=== PATIENT | female | born 1950 | race Caucasian/White ===

== ENCOUNTER 2017-08-26 13:55 | Emergency (ER) | payer MEDICARE ==
[~2017-08-26] VITALS: Ht 170.2 cm; Wt 80.5 kg
[2017-08-26 13:58] VITALS: BP 141/65; PULSE 105; RESP 14; TEMP 98.5; O2SAT 96
[2017-08-26] MEDS ORDERED: ROSU10 PO (15:03)
[2017-08-26] MEDS ORDERED: LISI10TA3 PO (15:03)
[2017-08-26] MEDS ORDERED: SODIUM CHLOR 0.9% 1000 ML INJ 1,000 ML IV SCH (15:06)
[2017-08-26] MEDS ORDERED: SODIUM CHLORIDE 0.9% FLUSH 10 ML FLUSH IV FLUSH PRN (15:15)
[2017-08-26] MEDS ORDERED: DIATRIZOATE MEGLUM/DIATRIZOATE SOD 9 ML CUP ONE (15:15)
--- NOTE | 2017-08-26 15:18 | PD ---
HPI Chief Complaint: GI Complaint Time Seen by Provider: 14:58 Travel History International Travel<30 days: No Contact w/Intl Traveler<30days: No Traveled to known affect area: No History of Present Illness HPI Patient is a 67 year old female who presents to the ER with complaints of constipation. Patient reports that she has history of diverticulitis, history of cholecystectomy as well as history of a hysterectomy. She reports that for the past 5 days, she has been unable to have a bowel movement. Patient reports that she is here visiting from [place], reports that her diet has been "off." Reports that she has been eating a lot of cheeses as well as nuts which is out of her normal diet. Patient reports that she normally has 2 bowel movements per day. Patient reports that for the past 5 days, she has had the urgency to have a bowel movement but was unable to. Patient reports that she has tried Dulcolax twice without any resolve. Reports increased crampy lower abdominal pain with nausea and no vomiting. Denies fever/chills. No other c/o. PFSH Past Medical History Hx Anticoagulant Therapy: No Cardiovascular Problems: No High Cholesterol: Yes Chemotherapy: No Cerebrovascular Accident: No Diabetes: No Hypertension: Yes Respiratory: No Tetanus Vaccination: < 5 Years ?: Not Past Surgical History Cholecystectomy: Yes Hysterectomy: Yes Social History Alcohol Use: Yes Tobacco Use: No Substance Use: No Allergies-Medications (Allergen,Severity, Reaction): Coded Allergies: codeine (Verified Allergy, Severe, 08/26/17) Reported Meds & Prescriptions Reported Meds & Active Scripts Active Reported Crestor (Rosuvastatin Calcium) 10 Mg Tab 10 Mg PO DAILY Lisinopril 10 Mg Tab 10 Mg PO DAILY Review of Systems General / Constitutional: No: Fever, Chills Eyes: No: Visual changes HENT: No: Headaches Cardiovascular: No: Chest Pain or Discomfort Respiratory: No: Shortness of Breath Gastrointestinal: Positive: Nausea, Abdominal Pain, Constipation, No: Vomiting , Diarrhea Genitourinary: No: Dysuria Musculoskeletal: No: Pain Skin: No Rash Neurologic: No: Weakness Psychiatric: No: Depression Endocrine: No: Polydipsia Hematologic/Lymphatic: No: Easy Bruising Physical Exam Narrative GENERAL: Mild distress SKIN: Focused skin assessment warm/dry. HEAD: Atraumatic. Normocephalic. EYES: Pupils equal and round. No scleral icterus. No injection or drainage. ENT: No nasal bleeding or discharge. Mucous membranes pink and moist. NECK: Trachea midline. No JVD. CARDIOVASCULAR: Regular rate and rhythm. No murmur appreciated. RESPIRATORY: No accessory muscle use. Clear to auscultation. Breath sounds equal bilaterally. GASTROINTESTINAL: Abdomen soft, mild lower abdominal tenderness. NO rebound or guarding on exam. Hepatic and splenic margins not palpable. Rectal exam performed with RN at bedside, patient with no stool in rectal vault MUSCULOSKELETAL: No obvious deformities. No clubbing. No cyanosis. No edema. NEUROLOGICAL: Awake and alert. No obvious cranial nerve deficits. Motor grossly within normal limits. Normal speech. PSYCHIATRIC: Appropriate mood and affect; insight and judgment normal. Data Data Last Documented VS Vital Signs Date Time Temp Pulse Resp B/P (MAP) Pulse Ox O2 Delivery O2 Flow Rate FiO2 08/26/17 15:39 99 08/26/17 13:58 98.5 105 14 Orders Orders Complete Blood Count With Diff (08/26/17 15:06) Comprehensive Metabolic Panel (08/26/17 15:06) Lipase (08/26/17 15:06) Prothrombin Time / Inr (Pt) (08/26/17 15:06) Act Partial Throm Time (Ptt) (08/26/17 15:06) Urinalysis - C+S If Indicated (08/26/17 15:06) Ct Abd/Pel W Iv Contrast(Rout) (08/26/17 15:06) Iv Access Insert/Monitor (08/26/17 15:06) Ecg Monitoring (08/26/17 15:06) Oximetry (08/26/17 15:06) Sodium Chlor 0.9% 1000 Ml Inj (Ns 1000 M (08/26/17 15:06) Sodium Chloride 0.9% Flush (Ns Flush) (08/26/17 15:15) Oral Contrast - Adult (08/26/17 15:13) Diatrizoate Liq ( Gastroview Liq) (08/26/17 15:15) Ondansetron Inj (Zofran Inj) (08/26/17 15:30) Urine Culture (08/26/17 15:20) Potassium Chloride (Kcl) (08/26/17 16:30) Ceftriaxone Inj (Rocephin Inj) (08/26/17 16:45) Labs Laboratory Tests Test 08/26/17 15:20 White Blood Count 14.5 TH/MM3 Red Blood Count 4.97 MIL/MM3 Hemoglobin 14.4 GM/DL Hematocrit 43.0 % Mean Corpuscular Volume 86.5 FL Mean Corpuscular Hemoglobin 29.0 PG Mean Corpuscular Hemoglobin Concent 33.5 % Red Cell Distribution Width 14.7 % Platelet Count 286 TH/MM3 Mean Platelet Volume 7.3 FL Neutrophils (%) (Auto) 71.4 % Lymphocytes (%) (Auto) 21.6 % Monocytes (%) (Auto) 5.9 % Eosinophils (%) (Auto) 0.7 % Basophils (%) (Auto) 0.4 % Neutrophils # (Auto) 10.4 TH/MM3 Lymphocytes # (Auto) 3.1 TH/MM3 Monocytes # (Auto) 0.9 TH/MM3 Eosinophils # (Auto) 0.1 TH/MM3 Basophils # (Auto) 0.1 TH/MM3 CBC Comment DIFF FINAL Differential Comment Prothrombin Time 10.2 SEC Prothromb Time International Ratio 0.9 RATIO Activated Partial Thromboplast Time 27.1 SEC Urine Color YELLOW Urine Turbidity HAZY Urine pH 7.0 Urine Specific [place] 1.019 Urine Protein TRACE mg/dL Urine Glucose (UA) NEG mg/dL Urine Ketones NEG mg/dL Urine Occult Blood NEG Urine Nitrite NEG Urine Bilirubin NEG Urine Urobilinogen LESS THAN 2.0 MG/DL Urine Leukocyte Esterase MOD Urine RBC 8 /hpf Urine WBC 19 /hpf Urine Squamous Epithelial Cells 4 /hpf Urine Mucus FEW /lpf Microscopic Urinalysis Comment CULTURE INDICATED Blood Urea Nitrogen 19 MG/DL Creatinine 0.88 MG/DL Random Glucose 113 MG/DL Total Protein 8.6 GM/DL Albumin 4.2 GM/DL Calcium Level 9.4 MG/DL Alkaline Phosphatase 85 U/L Aspartate Amino Transf (AST/SGOT) 30 U/L Alanine Aminotransferase (ALT/SGPT) 51 U/L Total Bilirubin 1.8 MG/DL Sodium Level 133 MEQ/L Potassium Level 3.3 MEQ/L Chloride Level 95 MEQ/L Carbon Dioxide Level 26.1 MEQ/L Anion Gap 12 MEQ/L Estimat Glomerular Filtration Rate 64 ML/MIN Lipase 122 U/L MDM Medical Decision Making Medical Screen Exam Complete: Yes Emergency Medical Condition: Yes Medical Record Reviewed: Yes Interpretation(s) Vital Signs Date Time Temp Pulse Resp B/P (MAP) Pulse Ox O2 Delivery O2 Flow Rate FiO2 08/26/17 13:58 98.5 105 14 141/65 (90) 96 Differential Diagnosis Small bowel obstruction, constipation, electrolyte abnormality, colitis, diverticulitis Narrative Course During the course of the patients emergency department visit, the patients history, examination, and differential diagnosis were reviewed with the patient. The patient was placed on a work car operator with oximetry and frequent blood pressure monitoring. The patient had 20 Gauge IV access obtained and blood work sent for analysis. The patient was initially provided IVF and antiemetics. The patients laboratory studies were reviewed and remarkable for Laboratory Tests Test 08/26/17 15:20 White Blood Count 14.5 TH/MM3 (4.0-11.0) Red Blood Count 4.97 MIL/MM3 (4.00-5.30) Hemoglobin 14.4 GM/DL (11.6-15.3) Hematocrit 43.0 % (35.0-46.0) Mean Corpuscular Volume 86.5 FL (80.0-100.0) Mean Corpuscular Hemoglobin 29.0 PG (27.0-34.0) Mean Corpuscular Hemoglobin Concent 33.5 % (32.0-36.0) Red Cell Distribution Width 14.7 % (11.6-17.2) Platelet Count 286 TH/MM3 (150-450) Mean Platelet Volume 7.3 FL (7.0-11.0) Neutrophils (%) (Auto) 71.4 % (16.0-70.0) Lymphocytes (%) (Auto) 21.6 % (9.0-44.0) Monocytes (%) (Auto) 5.9 % (0.0-8.0) Eosinophils (%) (Auto) 0.7 % (0.0-4.0) Basophils (%) (Auto) 0.4 % (0.0-2.0) Neutrophils # (Auto) 10.4 TH/MM3 (1.8-7.7) Lymphocytes # (Auto) 3.1 TH/MM3 (1.0-4.8) Monocytes # (Auto) 0.9 TH/MM3 (0-0.9) Eosinophils # (Auto) 0.1 TH/MM3 (0-0.4) Basophils # (Auto) 0.1 TH/MM3 (0-0.2) CBC Comment DIFF FINAL Differential Comment Prothrombin Time 10.2 SEC (9.8-11.6) Prothromb Time International Ratio 0.9 RATIO Activated Partial Thromboplast Time 27.1 SEC (24.3-30.1) Urine Color YELLOW (YELLW/STRAW) Urine Turbidity HAZY (CLEAR) Urine pH 7.0 (5.0-8.5) Urine Specific [place] 1.019 (1.002-1.035) Urine Protein TRACE mg/dL (NEG-TRACE) Urine Glucose (UA) NEG mg/dL (NEG) Urine Ketones NEG mg/dL (NEG) Urine Occult Blood NEG (NEG) Urine Nitrite NEG (NEG) Urine Bilirubin NEG (NEG) Urine Urobilinogen LESS THAN 2.0 MG/DL (LESS Urine Leukocyte Esterase MOD (NEG) Urine RBC 8 /hpf (0-3) Urine WBC 19 /hpf (0-5) Urine Squamous Epithelial Cells 4 /hpf (0-5) Urine Mucus FEW /lpf (OCC) Microscopic Urinalysis Comment CULTURE INDICATED Blood Urea Nitrogen 19 MG/DL (7-18) Creatinine 0.88 MG/DL (0.50-1.00) Random Glucose 113 MG/DL (74-106) Total Protein 8.6 GM/DL (6.4-8.2) Albumin 4.2 GM/DL (3.4-5.0) Calcium Level 9.4 MG/DL (8.5-10.1) Alkaline Phosphatase 85 U/L (45-117) Aspartate Amino Transf (AST/SGOT) 30 U/L (15-37) Alanine Aminotransferase (ALT/SGPT) 51 U/L (10-53) Total Bilirubin 1.8 MG/DL (0.2-1.0) Sodium Level 133 MEQ/L (136-145) Potassium Level 3.3 MEQ/L (3.5-5.1) Chloride Level 95 MEQ/L (98-107) Carbon Dioxide Level 26.1 MEQ/L (21.0-32.0) Anion Gap 12 MEQ/L (5-15) Estimat Glomerular Filtration Rate 64 ML/MIN (>89) Lipase 122 U/L (73-393) Radiology studies were reviewed and remarkable : pending Patient signed out to Dr. Pacheco at change of shift, patient pending CT of abdomen and pelvis Diagnosis Primary Impression: Constipation Qualified Codes: K59.00 - Constipation, unspecified Additional Impression: UTI (urinary tract infection) Patient Instructions: General Instructions Additional Instructions: Please provide patient with a copy of their lab work and studies at discharge* * Please follow up with your primary care doctor in 2-3 days Return to the ER if symptoms worsen or progress Return to the ER as needed Amelia Ozuna DO Aug 26, 2017 15:18
[2017-08-26] MEDS ORDERED: ONDANSETRON HCL 4 MG/2 ML VIAL IV PUSH ONE (15:30)
[2017-08-26 15:39] VITALS: O2SAT 99
[2017-08-26 15:51] LABS: AUTOMATED NEUTROPHIL # 10.4 TH/MM3 (1.8-7.7); BASOPHIL # 0.1 TH/MM3 (0-0.2); BASOPHIL % 0.4 % (0.0-2.0); EOSINOPHIL # 0.1 TH/MM3 (0-0.4); EOSINOPHIL % 0.7 % (0.0-4.0); HEMO FLAGS DIFF FINAL; LYMPH % 21.6 % (9.0-44.0); LYMPHOCYTE # 3.1 TH/MM3 (1.0-4.8); MEAN CELL VOLUME 86.5 FL (80.0-100.0); MEAN CORPUSCULAR HGB CONC 33.5 % (32.0-36.0); MONO % 5.9 % (0.0-8.0); NEUT % 71.4 % (16.0-70.0); PLATELET COUNT 286 TH/MM3 (150-450); RED BLOOD COUNT 4.97 MIL/MM3 (4.00-5.30); RED CELL DISTRIBUTION WIDTH 14.7 % (11.6-17.2); WHITE BLOOD COUNT 14.5 TH/MM3 (4.0-11.0)
[2017-08-26 15:58] LABS: BLOOD, URINE NEG (NEG); COMMENT (UR) CULTURE INDICATED; CULTURE IF INDICATED CULTURE INDICATED; GLUCOSE,URINE NEG (NEG); KETONE, URINE NEG (NEG); MUCUS URINE FEW /lpf (OCC); NITRITE,URINE NEG (NEG); SQUAMOUS EPITHELIAL CELL URINE 4 /hpf (0-5); URINE COLOR YELLOW (YELLW/STRAW)
[2017-08-26 16:13] LABS: APTT (PATIENT) 27.1 SEC (24.3-30.1); INTERNATIONAL NORMALIZED RATIO 0.9 RATIO; PROTHROMBIN TIME - PATIENT 10.2 SEC (9.8-11.6)
[2017-08-26 16:21] LABS: ALT (GPT) 51 U/L (10-53); ANION GAP 12 MEQ/L (5-15); AST (GOT) 30 U/L (15-37); BICARBONATE 26.1 MEQ/L (21.0-32.0); BLOOD UREA NITROGEN 19 MG/DL (7-18); CHLORIDE 95 MEQ/L (98-107); GLOMERULAR FILTRATION RATE 64 ML/MIN (>89); POTASSIUM 3.3 MEQ/L (3.5-5.1); SODIUM (NA) 133 MEQ/L (136-145)
[2017-08-26 16:24] LABS: ALKALINE PHOSPHATASE 85 U/L (45-117); TOTAL BILIRUBIN ADULT 1.8 MG/DL (0.2-1.0)
[2017-08-26] MEDS ORDERED: POTASSIUM CHLORIDE 10 MEQ CONTROLLED RELEASE TAB PO ONE (16:30)
[2017-08-26] MEDS ORDERED: cefTRIAXone INJ 1,000 MG in SODIUM CHLORIDE 0.9% INJ 100 ML IV ONE (16:45)
[2017-08-26] MEDS ORDERED: IOHEXOL 350 MG/ML 10 ML VIAL (for RAD DIAG) IVCONTRAST ONE (17:08)
--- NOTE | 2017-08-26 17:11 | RADRPT ---
EXAM DATE/TIME: 08/26/2017 16:30 [facility] COMPARISON: No previous studies available for comparison. INDICATIONS : Abdomen pain. IV CONTRAST: 100 cc Omnipaque 350 (iohexol) IV ORAL CONTRAST: Prescribed oral contrast ingested. RADIATION DOSE: 8.22 CTDIvol (mGy) MEDICAL HISTORY : Hypertension. SURGICAL HISTORY : Hysterectomy. Cholecystectomy. ENCOUNTER: Initial ACUITY: 3 days PAIN SCALE: 5/10 LOCATION: Bilateral abdomen. TECHNIQUE: Volumetric scanning of the abdomen and pelvis was performed. Using automated exposure control and ad justment of the mA and/or kV according to patient size, radiation dose was kept as low as reasonably achievable to obtain optimal diagnostic quality images. DICOM format image data is available electro nically for review and comparison. FINDINGS: There is grade 1 anterolisthesis of L5 on S1 and degenerative changes of the spine. No pleural or per icardial effusions. Hepatomegaly and hepatic steatosis identified. The patient is status post cholecy stectomy. The spleen, pancreas, adrenal glands are unremarkable. A small hiatal hernia is present. Th e kidneys are unremarkable. Urinary bladder is unremarkable. The patient is status post hysterectomy. There is diverticulosis of the sigmoid colon. There is a moderate amount of stool identified within the descending colon and sigmoid colon with mild stranding of the perisigmoid fat and trace fluid in the pelvis. Mild acute diverticulitis is suspected. There is no abscess. No free air. Atherosclerotic calcifications are noted. Lung bases are clear. CONCLUSION: 1. Hepatomegaly and hepatic steatosis. 2. Small hiatal hernia. 3. Moderate amount of stool in the left colon. 4. Diverticulosis with mild acute diverticulitis of the sigmoid colon. Jose Garcia MD on August 26, 2017 at 17:07 Board Certified Radiologist. This report was verified electronically.
[2017-08-26] MEDS ORDERED: LACT10SO PO (17:27)
[2017-08-26] MEDS ORDERED: METR-1 PO (17:27)
[2017-08-26] MEDS ORDERED: CIPR-9 PO (17:27)
--- NOTE | 2017-08-26 17:28 | PD ---
Data Data Last Documented VS Vital Signs Date Time Temp Pulse Resp B/P (MAP) Pulse Ox O2 Delivery O2 Flow Rate FiO2 08/26/17 15:39 99 08/26/17 13:58 98.5 105 14 Orders Orders Complete Blood Count With Diff (08/26/17 15:06) Comprehensive Metabolic Panel (08/26/17 15:06) Lipase (08/26/17 15:06) Prothrombin Time / Inr (Pt) (08/26/17 15:06) Act Partial Throm Time (Ptt) (08/26/17 15:06) Urinalysis - C+S If Indicated (08/26/17 15:06) Ct Abd/Pel W Iv Contrast(Rout) (08/26/17 15:06) Iv Access Insert/Monitor (08/26/17 15:06) Ecg Monitoring (08/26/17 15:06) Oximetry (08/26/17 15:06) Sodium Chlor 0.9% 1000 Ml Inj (Ns 1000 M (08/26/17 15:06) Sodium Chloride 0.9% Flush (Ns Flush) (08/26/17 15:15) Oral Contrast - Adult (08/26/17 15:13) Diatrizoate Liq ( Gastroview Liq) (08/26/17 15:15) Ondansetron Inj (Zofran Inj) (08/26/17 15:30) Urine Culture (08/26/17 15:20) Potassium Chloride (Kcl) (08/26/17 16:30) Ceftriaxone Inj (Rocephin Inj) (08/26/17 16:45) Iohexol 350 Inj (Omnipaque 350 Inj) (08/26/17 17:08) Ciprofloxacin (Cipro) (08/26/17 17:30) Metronidazole (Flagyl) (08/26/17 17:30) Labs Laboratory Tests Test 08/26/17 15:20 White Blood Count 14.5 TH/MM3 Red Blood Count 4.97 MIL/MM3 Hemoglobin 14.4 GM/DL Hematocrit 43.0 % Mean Corpuscular Volume 86.5 FL Mean Corpuscular Hemoglobin 29.0 PG Mean Corpuscular Hemoglobin Concent 33.5 % Red Cell Distribution Width 14.7 % Platelet Count 286 TH/MM3 Mean Platelet Volume 7.3 FL Neutrophils (%) (Auto) 71.4 % Lymphocytes (%) (Auto) 21.6 % Monocytes (%) (Auto) 5.9 % Eosinophils (%) (Auto) 0.7 % Basophils (%) (Auto) 0.4 % Neutrophils # (Auto) 10.4 TH/MM3 Lymphocytes # (Auto) 3.1 TH/MM3 Monocytes # (Auto) 0.9 TH/MM3 Eosinophils # (Auto) 0.1 TH/MM3 Basophils # (Auto) 0.1 TH/MM3 CBC Comment DIFF FINAL Differential Comment Prothrombin Time 10.2 SEC Prothromb Time International Ratio 0.9 RATIO Activated Partial Thromboplast Time 27.1 SEC Urine Color YELLOW Urine Turbidity HAZY Urine pH 7.0 Urine Specific [place] 1.019 Urine Protein TRACE mg/dL Urine Glucose (UA) NEG mg/dL Urine Ketones NEG mg/dL Urine Occult Blood NEG Urine Nitrite NEG Urine Bilirubin NEG Urine Urobilinogen LESS THAN 2.0 MG/DL Urine Leukocyte Esterase MOD Urine RBC 8 /hpf Urine WBC 19 /hpf Urine Squamous Epithelial Cells 4 /hpf Urine Mucus FEW /lpf Microscopic Urinalysis Comment CULTURE INDICATED Blood Urea Nitrogen 19 MG/DL Creatinine 0.88 MG/DL Random Glucose 113 MG/DL Total Protein 8.6 GM/DL Albumin 4.2 GM/DL Calcium Level 9.4 MG/DL Alkaline Phosphatase 85 U/L Aspartate Amino Transf (AST/SGOT) 30 U/L Alanine Aminotransferase (ALT/SGPT) 51 U/L Total Bilirubin 1.8 MG/DL Sodium Level 133 MEQ/L Potassium Level 3.3 MEQ/L Chloride Level 95 MEQ/L Carbon Dioxide Level 26.1 MEQ/L Anion Gap 12 MEQ/L Estimat Glomerular Filtration Rate 64 ML/MIN Lipase 122 U/L [facility] Supervised Visit with VALENTIN: No Narrative Course The patient was initially evaluated by the previous provider and sent out to me at the beginning of my shift pending CT abdomen and pelvis and disposition. See her note for further details. Briefly this is a 67-year-old female who is here from [place] and plans to return in 2 days, history of diverticulosis/diverticulitis, here for evaluation of constipation for 5 days as well as abdominal pain. Her pain is mainly lower , however is diffuse, is mild. On exam the patient is resting comfortable he. She has mild diffuse abdominal tenderness. Her abdomen is soft. There are no peritoneal signs. Vital signs reviewed. CBC is remarkable for WBC 14.5 with 71% neutrophils. CMP is remarkable for sodium 133, potassium 3.3 which was replaced orally, chloride 95, otherwise essentially unremarkable. Lipase is 122. UA shows hazy urine, moderate leukocyte esterase, 8 RBCs, 19 wbc's, few mucus. The patient was given a dose of IV Rocephin by the previous provider for her UA findings. CT abdomen pelvis: CONCLUSION: 1. Hepatomegaly and hepatic steatosis. 2. Small hiatal hernia. 3. Moderate amount of stool in the left colon. 4. Diverticulosis with mild acute diverticulitis of the sigmoid colon. Patient was made aware of all findings. Again she is resting comfortably. She does have some mild diffuse abdominal tenderness without peritoneal signs. Her abdomen is otherwise soft. Plan is to start her on Cipro and Flagyl. I will also give her prescription for lactulose should she not have a bowel movement in the next 1-2 days. She will follow-up with her primary care physician when she returns to [place] in 2 days. She was informed on when to return to the emergency department. She verbalizes understanding and agreement with plan. Diagnosis Primary Impression: Diverticulitis Additional Impressions: Constipation Qualified Codes: K59.00 - Constipation, unspecified UTI (urinary tract infection) Qualified Codes: N30.00 - Acute cystitis without hematuria Referrals: Primary Care Physician 3 days Patient Instructions: General Instructions Additional Instruction: Please provide patient with a copy of their lab work and studies at discharge* * Please follow up with your primary care doctor in 2-3 days Return to the ER if symptoms worsen or progress Return to the ER as needed Scripts Lactulose Liq (Lactulose Liq) 10 Gm/15 Ml Soln 30 ML PO Q6H Y for CONSTIPATION for 3 Days, #360 ML 0 Refills Prov: Te Pacheco MD 08/26/17 Metronidazole (Flagyl) 500 Mg Tab 500 MG PO BID for Infection for 10 Days, #20 TAB 0 Refills Prov: Te Pacheco MD 08/26/17 Ciprofloxacin (Cipro) 500 Mg Tab 500 MG PO BID for Infection for 10 Days, #20 TAB 0 Refills Prov: Te Pacheco MD 08/26/17 Disposition: 01 DISCHARGE HOME Condition: Stable Te Pacheco MD Aug 26, 2017 17:28
[2017-08-26] MEDS ORDERED: metroNIDAZOLE 500 MG TAB PO ONE (17:30)
[2017-08-26] MEDS ORDERED: CIPROFLOXACIN 500 MG TAB PO ONE (17:30)
== END 2017-08-26 17:56 | disposition home or self-care (01) ==
LOC: NEPD 13:55
DX: K57.92 Diverticulitis of intestine, part unspecified, without perforation or abscess without bleeding (principal); K59.00 Constipation, unspecified; N30.00 Acute cystitis without hematuria; K76.0 Fatty (change of) liver, not elsewhere classified; I10 Essential (primary) hypertension; K44.9 Diaphragmatic hernia without obstruction or gangrene
CPT/HCPCS: 74177; 80053; 81001; 83690; 85025; 85610; 85730; 87086; 96361; 96365; 96375; 99285; J0696; J2405; J7030; Q9963; Q9967